=== PATIENT | female | born 1940 | race Caucasian/White ===

== ENCOUNTER 2019-01-14 15:47 | Emergency (ER) | payer MEDICARE ==
[~2019-01-14] VITALS: Ht 157.5 cm; Wt 65.9 kg
[~2019-01-14 15:47] MED LIST: COUMADIN2.5 MG OR; COUMADIN5 M1 IV; COUMADIN5 MG OR; DIGOXIN0.125 MG OR; LANOXIN0.125 MG OR; LIPITOR10 MG OR; PLAVIX75 MG OR; PREVACID30 M1 OR; PREVACID30 M2 OR; SOTALOL AF80 MG OR; SOTALOL HCL80 MG OR; SYNTHROID50 MCG OR
[2019-01-14 16:24] LABS: URINE BILIRUBIN - DIPSTICK NEGATIVE (NEGATIVE); URINE BLOOD DIPSTICK SMALL (NEGATIVE); URINE COLOR YELLOW; URINE GLUCOSE - DIPSTICK NEGATIVE (NEGATIVE); URINE KETONE NEGATIVE (NEGATIVE); URINE NITRITE - DIPSTICK NEGATIVE (Negative); URINE PROTEIN - DIPSTICK NEGATIVE (NEG-TRACE); URINE UROBILINOGEN - DIPSTICK 0.2 E.U./dL (0.2)
[2019-01-14 16:30] LABS: URINE LEUK ESTERASE LARGE (NEGATIVE)
[2019-01-14 16:46] LABS: URINE BACTERIA FEW hpf; URINE SQUAMOUS EPITHELIAL CELL FEW EPI/hpf (0-FEW); URINE WBC TNTC WBC/hpf (0-5)
[2019-01-14] MEDS ORDERED: PYRIDIUM200 MG PO (17:09)
[2019-01-14] MEDS ORDERED: MACRODANTIN100 MG PO (17:09)
[2019-01-14 17:32] VITALS: BP 165/65
== END 2019-01-14 17:42 | disposition home or self-care (01) ==
LOC: ED 15:47
PROVIDERS: Emergency Medicine
DX: N39.0 Urinary tract infection, site not specified (principal)

== ENCOUNTER 2020-08-11 19:20 | Emergency (ER) | payer MEDICARE ==
[~2020-08-11] VITALS: Ht 157.5 cm; Wt 63.0 kg
[~2020-08-11 19:20] MED LIST changes: +MACRODANTIN100 MG PO; +PYRIDIUM200 MG PO
[2020-08-11] MEDS ORDERED: ASPIRIN EC LOW81 MG PO (20:21)
[2020-08-11] MEDS ORDERED: MOTRIN400 MG/TAB PO (21:17)
[2020-08-11] MEDS ORDERED: ORPHENADRINE100 MG PO (21:17)
[2020-08-11 21:21] VITALS: BP 170/77
== END 2020-08-11 21:21 | disposition home or self-care (01) ==
LOC: ED 19:20
DX: M47.812 Spondylosis without myelopathy or radiculopathy, cervical region (principal); Z95.1 Presence of aortocoronary bypass graft

== ENCOUNTER 2020-12-31 | Emergency (ER) | payer MEDICARE, MEDICAID ==
[~2020-12-31] MED LIST changes: +ASPIRIN EC LOW81 MG PO; +MOTRIN400 MG/TAB PO; +ORPHENADRINE100 MG PO
[2020-12-31] MEDS ORDERED: WARFARIN5 MG PO (11:23)
[2020-12-31] MEDS ORDERED: LEVOTHYROXIN100 MCG PO ×2 (11:24→11:25)
[2020-12-31] MEDS ORDERED: BREO ELLIPTA 101 INH IN (11:27)
[2020-12-31] MEDS ORDERED: ALBUTEROL SUL0.083 % IN (11:27)
[2020-12-31] MEDS ORDERED: VENTOLIN HFA IN (11:29)
[2020-12-31] MEDS ORDERED: LORTAB 5/3255 MG PO (12:11)
== END 2020-12-31 12:35 | disposition home or self-care (01) ==
DX: S20.211A Contusion of right front wall of thorax, initial encounter (principal); W19.XXXA Unspecified fall, initial encounter; Z95.1 Presence of aortocoronary bypass graft; Z79.01 Long term (current) use of anticoagulants; Z79.02 Long term (current) use of antithrombotics/antiplatelets; Z79.82 Long term (current) use of aspirin

== ENCOUNTER 2022-01-09 15:47 | Emergency (ER) | payer MEDICARE ==
[~2022-01-09] VITALS: Ht 157.5 cm; Wt 62.0 kg
[~2022-01-09 15:47] MED LIST changes: +ALBUTEROL SUL0.083 % IN; +BREO ELLIPTA 101 INH IN; +LEVOTHYROXIN100 MCG PO; +LORTAB 5/3255 MG PO; +VENTOLIN HFA IN; +WARFARIN5 MG PO
[2022-01-09 15:56] VITALS: BP 159/140
[2022-01-09 15:57] VITALS: BP 159/61
[2022-01-09 16:02] VITALS: BP 118/60
[2022-01-09 16:31] VITALS: BP 113/74
[2022-01-09 17:00] VITALS: BP 126/51
[2022-01-09 17:03] LABS: IMMATURE GRANULOCYTES 0.3 % (0.0-5.0); MEAN CELL VOLUME 93.5 fL CALC (80.0-100.0); MEAN CORPUSCULAR HGB 30.7 pG CALC (26.0-32.0); MEAN CORPUSCULAR HGB CONC 32.9 g/dL CAL (32.0-36.0); NEUT# 3.38 thou/uL (2.00-7.15); RED BLOOD COUNT 3.84 mill/uL (4.20-5.60); RED CELL DISTRI WIDTH 15.4 % (11.5-15.5)
[2022-01-09 17:05] LABS: HEMATOCRIT 35.9 % (37.0-47.0); HEMOGLOBIN 11.8 g/dl (12.0-16.0)
[2022-01-09 17:24] LABS: PROTHROMBIN TIME 60.4 SECONDS (9.0-12.5)
[2022-01-09 17:25] LABS: INTERNATIONAL NORMALIZED RATIO 6.5 RATIO (0.7-1.3)
[2022-01-09 17:36] VITALS: BP 126/51
== END 2022-01-09 17:47 | disposition home or self-care (01) ==
LOC: ED 15:47
PROVIDERS: Family Medicine
DX: H92.22 Otorrhagia, left ear (principal); T45.515A Adverse effect of anticoagulants, initial encounter; I10 Essential (primary) hypertension; E11.9 Type 2 diabetes mellitus without complications; I25.2 Old myocardial infarction; Z86.73 Personal history of transient ischemic attack (TIA), and cerebral infarction without residual deficits; Z79.01 Long term (current) use of anticoagulants; Z79.02 Long term (current) use of antithrombotics/antiplatelets; Z95.1 Presence of aortocoronary bypass graft; Z85.038 Personal history of other malignant neoplasm of large intestine

== ENCOUNTER 2022-05-05 11:40 | Emergency (ER) | payer MEDICARE, MEDICAID ==
[~2022-05-05] VITALS: Ht 157.5 cm; Wt 61.2 kg
[2022-05-05 12:43] VITALS: BP 187/86
[2022-05-05 13:00] VITALS: BP 151/57
[2022-05-05 13:43] LABS: HEMATOCRIT 36.3 % (37.0-47.0); HEMOGLOBIN 11.9 g/dl (12.0-16.0); IMMATURE GRANULOCYTES 0.4 % (0.0-5.0); MEAN CELL VOLUME 93.6 fL CALC (80.0-100.0); MEAN CORPUSCULAR HGB 30.7 pG CALC (26.0-32.0); MEAN CORPUSCULAR HGB CONC 32.8 g/dL CAL (32.0-36.0); NEUT# 4.83 thou/uL (2.00-7.15); RED BLOOD COUNT 3.88 mill/uL (4.20-5.60); RED CELL DISTRI WIDTH 15.6 % (11.5-15.5)
[2022-05-05 13:46] VITALS: BP 157/65
[2022-05-05 14:00] VITALS: BP 161/66
[2022-05-05 14:11] LABS: ALBUMIN 4.6 g/dL (3.2-5.0); ALKALINE PHOSPHATASE 73 u/l (38-126); ANION GAP 13 (6-22 (CALC)); BILIRUBIN, TOTAL 0.7 mg/dL (0.0-1.4); BUN 11 mg/dL (8-23); BUN/CREATININE RATIO 19 (12-20 (CALC)); CARBON DIOXIDE 27 mmol/l (22-30); CHLORIDE 95 mmol/l (95-108); CREATININE 0.6 mg/dL (0.5-1.0); GFR FOR AFR.AMER. > 60 ML/MIN (>=60 (CALC)); GFR OTHER RACES > 60 ML/MIN (>=60 (CALC)); POTASSIUM 4.6 mmol/l (3.5-5.1); SGOT/AST 32 u/l (9-36); SODIUM 130 mmol/l (137-146); TOTAL PROTEIN 7.8 g/dL (6.3-8.2)
[2022-05-05 14:22] LABS: INTERNATIONAL NORMALIZED RATIO 2.7 RATIO (0.7-1.3); PROTHROMBIN TIME 25.5 SECONDS (9.0-12.5)
[2022-05-05] MEDS ORDERED: ULTRAM50 M1 PO (15:17)
[2022-05-05 15:43] VITALS: BP 161/66
== END 2022-05-05 15:55 | disposition home or self-care (01) ==
LOC: ED 11:40
PROVIDERS: Nurse Practitioner
DX: S20.212A Contusion of left front wall of thorax, initial encounter (principal); W01.198A Fall on same level from slipping, tripping and stumbling with subsequent striking against other object, initial encounter; Z95.1 Presence of aortocoronary bypass graft

== ENCOUNTER 2022-05-23 17:30 | Emergency (ER) | payer MEDICARE, MEDICAID ==
[~2022-05-23 17:30] MED LIST changes: +ULTRAM50 M1 PO
== END 2022-05-23 17:45 | disposition left against medical advice (07) ==
LOC: ED 17:30 → LWOBS 17:45
DX: Z53.21 Procedure and treatment not carried out due to patient leaving prior to being seen by health care provider (principal)

== ENCOUNTER 2022-07-11 13:37 | Emergency (ER) | payer MEDICARE ==
[2022-07-11] VITALS (7 sets, daily range): BP systolic 64–142; BP diastolic 50–121
[~2022-07-11] VITALS: Ht 157.5 cm; Wt 61.3 kg
[2022-07-11 14:22] LABS: HEMATOCRIT 35.2 % (37.0-47.0); HEMOGLOBIN 11.4 g/dl (12.0-16.0); IMMATURE GRANULOCYTES 0.8 % (0.0-5.0); MEAN CELL VOLUME 93.9 fL CALC (80.0-100.0); MEAN CORPUSCULAR HGB 30.4 pG CALC (26.0-32.0); MEAN CORPUSCULAR HGB CONC 32.4 g/dL CAL (32.0-36.0); NEUT# 3.76 thou/uL (2.00-7.15); RED BLOOD COUNT 3.75 mill/uL (4.20-5.60); RED CELL DISTRI WIDTH 15.8 % (11.5-15.5)
[2022-07-11 14:32] LABS: ANION GAP 15 (6-22 (CALC)); BUN 12 mg/dL (8-23); BUN/CREATININE RATIO 16 (12-20 (CALC)); CARBON DIOXIDE 22 mmol/l (22-30); CHLORIDE 95 mmol/l (95-108); CREATININE 0.8 mg/dL (0.5-1.0); GFR FOR AFR.AMER. > 60 ML/MIN (>=60 (CALC)); GFR OTHER RACES > 60 ML/MIN (>=60 (CALC)); POTASSIUM 4.8 mmol/l (3.5-5.1); SODIUM 127 mmol/l (137-146)
[2022-07-11 15:04] LABS: INTERNATIONAL NORMALIZED RATIO 1.6 RATIO (0.7-1.3); PROTHROMBIN TIME 15.2 SECONDS (9.0-12.5)
== END 2022-07-11 16:10 | disposition home or self-care (01) ==
LOC: ED 13:37
PROVIDERS: Family Medicine
DX: S00.411A Abrasion of right ear, initial encounter (principal); I10 Essential (primary) hypertension; J44.9 Chronic obstructive pulmonary disease, unspecified; I48.91 Unspecified atrial fibrillation; X58.XXXA Exposure to other specified factors, initial encounter; Z79.01 Long term (current) use of anticoagulants; Z95.1 Presence of aortocoronary bypass graft; Z85.038 Personal history of other malignant neoplasm of large intestine

== ENCOUNTER 2023-02-17 12:20 | Emergency (ER) | payer MEDICARE ==
[~2023-02-17] VITALS: Ht 157.5 cm; Wt 56.7 kg
[2023-02-17 12:44] VITALS: BP 165/61
== END 2023-02-17 12:48 | disposition home or self-care (01) ==
LOC: ED 12:20
DX: H93.8X2 Other specified disorders of left ear (principal); I10 Essential (primary) hypertension; I48.91 Unspecified atrial fibrillation; J44.9 Chronic obstructive pulmonary disease, unspecified; Z95.1 Presence of aortocoronary bypass graft

== ENCOUNTER 2024-07-03 10:06 | Emergency (ER) | payer MEDICARE ==
[2024-07-03] VITALS (7 sets, daily range): BP systolic 126–238; BP diastolic 57–142
[~2024-07-03] VITALS: Ht 157.5 cm; Wt 56.6 kg
[2024-07-03] MEDS ORDERED: ACETAMINOPHEN 500 MG TAB PO ONE (10:30)
[2024-07-03 10:53] LABS: BASO% 2.1 % (0-3); EOS% 0.5 % (0-8); HEMATOCRIT 37.9 % (37.0-47.0); HEMOGLOBIN 12.4 g/dl (12.0-16.0); IMMATURE GRANULOCYTES 0.3 % (0.0-5.0); LYMPH% 29.4 % (15-41); MEAN CELL VOLUME 98.2 fL CALC (80.0-100.0); MEAN CORPUSCULAR HGB 32.1 pG CALC (26.0-32.0); MEAN CORPUSCULAR HGB CONC 32.7 g/dL CAL (32.0-36.0); MONO% 9.3 % (2-13); NEUT# 3.6 thou/uL (2.00-7.15); NEUT% 58.4 % (42-76); RED BLOOD COUNT 3.86 mill/uL (4.20-5.60); RED CELL DISTRI WIDTH 14.7 % (11.5-15.5)
[2024-07-03 11:05] LABS: ALBUMIN 4.6 g/dL (3.2-5.0); ALKALINE PHOSPHATASE 54 u/l (38-126); BILIRUBIN, TOTAL 0.8 mg/dL (0.02-1.3); BUN 9 mg/dL (8-23); BUN/CREATININE RATIO 15 (12-20 (CALC)); CARBON DIOXIDE 27 mmol/l (22-30); CHLORIDE 105 mmol/l (95-108); CREATININE 0.6 mg/dL (0.5-1.0); ESTIMATED GFR 88 ML/MIN (>=90 (CALC)); SGOT/AST 27 u/l (9-36); SODIUM 136 mmol/l (137-146); TOTAL PROTEIN 7.5 g/dL (6.3-8.2)
[2024-07-03 11:07] LABS: ANION GAP 8 (6-22 (CALC)); POTASSIUM 4.2 mmol/l (3.5-5.1)
[2024-07-03] MEDS ORDERED: ZOFRAN4 MG/TAB PO (12:02)
[2024-07-03] MEDS ORDERED: TRAMADOL HYDROC50 M1 PO (12:02)
== END 2024-07-03 12:26 | disposition home or self-care (01) ==
LOC: ED 10:06
PROVIDERS: Family Medicine
DX: R07.81 Pleurodynia (principal); I10 Essential (primary) hypertension; I48.91 Unspecified atrial fibrillation; I25.10 Atherosclerotic heart disease of native coronary artery without angina pectoris; J44.9 Chronic obstructive pulmonary disease, unspecified; Z95.1 Presence of aortocoronary bypass graft; Z85.038 Personal history of other malignant neoplasm of large intestine

== ENCOUNTER 2024-09-22 12:18 | Observation (INO) | payer MEDICARE ==
[~2024-09-22] VITALS: Ht 157.5 cm; Wt 54.0 kg
[2024-09-22] VITALS (11 sets, daily range): BP systolic 123–145; BP diastolic 44–109
[~2024-09-22 12:18] MED LIST changes: -DIGOXIN0.125 MG OR; +DIGOXIN0.125 MG PO; +PERCOCET 5/325M1 TAB PO; +PLAVIX75 MG PO; +TRAMADOL HYDROC50 M1 PO; +ZOFRAN4 MG/TAB PO
--- NOTE | 2024-09-22 12:40 | NUR ---
PT BROUGHT BACK TO ER ROOM 9 VIA WHEELCHAIR, PTS DAUGHTER AT SIDE
[2024-09-22] MEDS ORDERED: dilTIAZem HCL 50 MG/10 ML SDV IV ONE ×2 (13:00→14:30)
[2024-09-22] MEDS ORDERED: DILTIAZEM HCL 125 MG in SODIUM CHLORIDE 0.9% 100 ML IV ONE ×2 (13:05→14:30)
[2024-09-22] MEDS ORDERED: IPRATROPIUM-Albuterol 0.5MG-2.5MG/3 ML NEB ONE ×2 (13:15)
[2024-09-22] MEDS ORDERED: AZITHROMYCIN 500 MG in SODIUM CHLORIDE 0.9% 500 ML IV ONE (13:15)
[2024-09-22] MEDS ORDERED: ACETAMINOPHEN 500 MG TAB PO ONE (13:15)
[2024-09-22] MEDS ORDERED: methylPREDNISolone SODIUM SUCC 125 MG/2 ML SDV IV ONE (13:15)
[2024-09-22] MEDS ORDERED: SODIUM CHLORIDE 0.9% 1,000 ML IV ONE (13:15)
[2024-09-22] MEDS ORDERED: cefTRIAXone SODIUM 2 GM in SODIUM CHLORIDE 0.9% 100 ML IV ONE (13:15)
[2024-09-22 13:22] LABS: EOS% 0.2 % (0-8); HEMATOCRIT 33.6 % (37.0-47.0); HEMOGLOBIN 10.8 g/dl (12.0-16.0); IMMATURE GRANULOCYTES 1.1 % (0.0-5.0); LYMPH% 8.5 % (15-41); MEAN CELL VOLUME 96.8 fL CALC (80.0-100.0); MEAN CORPUSCULAR HGB 31.1 pG CALC (26.0-32.0); MEAN CORPUSCULAR HGB CONC 32.1 g/dL CAL (32.0-36.0); MONO% 4.7 % (2-13); NEUT# 7.04 thou/uL (2.00-7.15); NEUT% 84.5 % (42-76); RED BLOOD COUNT 3.47 mill/uL (4.20-5.60); RED CELL DISTRI WIDTH 15.3 % (11.5-15.5)
[2024-09-22 13:29] LABS: BILIRUBIN, TOTAL 1.1 mg/dL (0.02-1.3); CREATININE 0.5 mg/dL (0.5-1.0); POTASSIUM 4.4 mmol/l (3.5-5.1); TOTAL PROTEIN 6.3 g/dL (6.3-8.2)
[2024-09-22 13:31] LABS: ALBUMIN 3.5 g/dL (3.2-5.0)
[2024-09-22] MEDS ORDERED: SODIUM CHLORIDE 0.9% 500 ML IV PRN (13:40)
[2024-09-22 14:00] LABS: TSH, 3RD GENERATION 0.49 uIU/mL (0.47 - 4.68)
[2024-09-22] MEDS ORDERED: SODIUM CHLORIDE 0.9% 250 ML IV PRN (14:30)
--- NOTE | 2024-09-22 17:30 | NUR ---
#18 aust[place]ian sams inserted with clear yellow urine return.
[2024-09-22] MEDS ORDERED: SODIUM CHLORIDE 0.9% 1,000 ML IV PRN (17:40)
[2024-09-22] MEDS ORDERED: ACETAMINOPHEN 325 MG/TAB PO PRN (17:40)
[2024-09-22] MEDS ORDERED: MAGNESIUM HYDROXIDE 30 ML UDC PO PRN (17:40)
--- NOTE | 2024-09-22 17:57 | NUR ---
Report called to [facility] Fox, ICU bed 4 for patient transfer.
--- NOTE | 2024-09-22 17:58 | NUR ---
RECIEVED REPORT FROM ED RN. AWAITING PT ARRIVAL
[2024-09-22 18:01] LABS: URINE BILIRUBIN - DIPSTICK Negative (NEGATIVE); URINE BLOOD DIPSTICK Negative (NEGATIVE); URINE GLUCOSE - DIPSTICK Negative (NEGATIVE); URINE KETONE 15 mg/dL (NEGATIVE); URINE LEUK ESTERASE Negative (NEGATIVE); URINE NITRITE - DIPSTICK Negative (Negative); URINE PROTEIN - DIPSTICK Negative (NEG-TRACE)
[2024-09-22 18:02] LABS: URINE COLOR Yellow
[2024-09-22] MEDS ORDERED: IPRATROPIUM-Albuterol 0.5MG-2.5MG/3 ML NEB PRN (18:55)
--- NOTE | 2024-09-22 19:10 | NUR ---
RN contacted daughter Geovanna Braden for home medication list. Per daughter "I do not have the list. My sister does. I will call her right now and ask her to call you with the name of the meds.". RN ask sister name and phone number to save in the chart to which was reply "I do not have her number by heart". RN will wait for the phone call back
[2024-09-22] MEDS ORDERED: ELIQUIS2.5 MG (19:26)
--- NOTE | 2024-09-22 19:31 | NUR ---
daughter Patsy called back and med list updated. Contact to [facility] is [phone]
--- NOTE | 2024-09-22 19:45 | NUR ---
PT RESTING IN BED NO DISTRESS NOTED ON ASSESSMENT. PT ASKING FOR FOOD NURSE PROVIDED A TV DINNER AND SODA. IV FLUSHED WORKING PROPERLY IV FLUIDS STARTED AT 100ML/HR. VS WNL ON RA LUNGS COARSE WITH A PRODUCTIVE COUGH, WHITE THICK SPUTUM SMALL AMOUNT. PT WITH SERVIN CATHETER NO KINKS. SKIN INTACT NO EDEMA NOTED. CALL LIGHT WITHIN REACH. PT STATED UNDERSTANDING ON HOW TO USE IT. PLAN OF CARE ONGOING.
[2024-09-22] MEDS ORDERED: ENOXAPARIN SODIUM 40 MG/0.4 ML SYR SC SCH (21:00)
[2024-09-22] MEDS ORDERED: methylPREDNISolone Sod Succ 40 MG/ML SDV IV SCH (22:00)
--- NOTE | 2024-09-22 22:00 | NUR ---
PT RESTING NO DISTRESS NOTED. O2 READING AT 96% ON RA. CALL LIGHT WITHIN REACH. PLAN OF CARE ONGOING.
--- NOTE | 2024-09-22 22:30 | NUR ---
PT REQUESTED BREATHING TX BEFORE GOING TO SLEEP.
[2024-09-23] VITALS (46 sets, daily range): BP systolic 108–187; BP diastolic 42–120
--- NOTE | 2024-09-23 02:04 | NUR ---
PT SLEEPING EASILY AROUSABLE NO DISTRESS NOTED. SERVIN CATHETER EMPTIED, CLEAR YELLOW URINE 1200ML NO KINKS. CALL LIGHT WITHIN REACH. PLAN OF CARE ONGOING.
--- NOTE | 2024-09-23 04:00 | NUR ---
PT SLEEPING NO DISTRESS NOTED. CALL LIGHT WITHIN REACH. PLAN OF CARE ONGOING.
[2024-09-23 05:02] LABS: BASO% 0.3 % (0-3); HEMATOCRIT 33.7 % (37.0-47.0); HEMOGLOBIN 10.6 g/dl (12.0-16.0); IMMATURE GRANULOCYTES 0.5 % (0.0-5.0); MEAN CELL VOLUME 99.4 fL CALC (80.0-100.0); MEAN CORPUSCULAR HGB 31.3 pG CALC (26.0-32.0); MEAN CORPUSCULAR HGB CONC 31.5 g/dL CAL (32.0-36.0); MONO% 1.4 % (2-13); NEUT# 5.81 thou/uL (2.00-7.15); NEUT% 90.9 % (42-76); RED BLOOD COUNT 3.39 mill/uL (4.20-5.60); RED CELL DISTRI WIDTH 15.2 % (11.5-15.5)
[2024-09-23 05:28] LABS: ALBUMIN 3.3 g/dL (3.2-5.0); CREATININE 0.4 mg/dL (0.5-1.0); MAGNESIUM 2.1 mg/dL (1.6-2.3); TOTAL PROTEIN 5.9 g/dL (6.3-8.2)
[2024-09-23 05:29] LABS: BILIRUBIN, TOTAL 0.6 mg/dL (0.02-1.3); LYMPH% 6.9 % (15-41)
--- NOTE | 2024-09-23 06:00 | NUR ---
PT AWAKE NO DISTRESS NOTED. IV FLUSHED NEW IV BAG STARTED AND MEDICATION GIVEN WORKING PROPERLY. SERVIN BAG EMPTIED WITH CLEAR YELLOW URINE NO KINKS. NO PAIN REPORTED AT THIS TIME. PT STILL HAVING A PRODUCTIVE COUGH LUNGS COARSE. CALL LIGHT WITHIN REACH. PLAN OF CARE ONGOING.
--- NOTE | 2024-09-23 08:36 | NUR ---
spoke to daughter nova about medications. Dr Chen spoke to her as well.
[2024-09-23] MEDS ORDERED: DIGOXIN 0.125 MG/TAB PO SCH (09:00)
[2024-09-23] MEDS ORDERED: APIXABAN BASE 2.5 MG/TAB TAB PO SCH (09:30)
[2024-09-23] MEDS ORDERED: METOPROLOL TARTRATE 5 MG/5 ML VIAL IV PRN (09:35)
[2024-09-23] MEDS ORDERED: AZITHROMYCIN 500 MG in SODIUM CHLORIDE 0.9% 500 ML IV SCH (14:00)
--- NOTE | 2024-09-23 20:05 | NUR ---
ASSESSMENT COMPLETE. PT IS SITTING UPRIGHT IN CHAIR. PT ONLY COMPLAINT IS PRODUCTIVE COUGH. FLUIDS PROVIDED. V/S STABLE. CALL LIGHT IS IN REACH
[2024-09-23] MEDS ORDERED: ATORVASTATIN CALCIUM 10 MG/TAB PO SCH (21:00)
[2024-09-24] VITALS (19 sets, daily range): BP systolic 153–193; BP diastolic 61–87
--- NOTE | 2024-09-24 00:21 | NUR ---
@ APPROX 0010 A LOUD BANG NOISE HEARD, 3 NURSING STAFF ENTER ROOM, PT FOUND PULLING HERSELF UP OFF FLOOR. PT CONTINUED STATING "IM FINE." PT ASSESSED. IV IN RFA REMOVED, CATHETER INTACT. NO INJURIES NOTED, PT DENIES PAIN, NO COMPLAINTS. PT A + O x4. EDUCATED PT ON NEED TO CALL FOR ASSISTANCE TO GET OUT OF BED. FALL SOCKS WERE ON BILAT FEET WHEN INCIDENT OCCURRED. LEASING REPRESENTATIVE NOTIFIED. BP ELEVATED. HR IS 88. CALL LIGHT IN REACH
--- NOTE | 2024-09-24 04:23 | NUR ---
PT SITTING UPRIGHT IN CHAIR, RESTING COMFORTABLY. NO COMPLAINTS/NEEDS AT THIS TIME. PT DENIES ANY PAIN/INJURY FROM FALL. PROIVDER WAS NOTIFED OF FALL @ 0047. PT IS A + O x4. FLUIDS PROIVDED. IV METOPROL GIVEN FOR ELEVATED BP PER PROVIDER ORDERS. CALL LIGHT IS IN REACH
[2024-09-24] MEDS ORDERED: LEVOTHYROXINE SODIUM 100 MCG TAB PO SCH (06:00)
[2024-09-24] MEDS ORDERED: PREDNISONE10 MG PO (08:14)
[2024-09-24] MEDS ORDERED: VANTIN200 M1 PO (08:15)
[2024-09-24] MEDS ORDERED: AZITHROMYCIN500 MG PO (08:16)
[2024-09-24] MEDS ORDERED: PROTONIX40 M2 PO (08:18)
[2024-09-24] MEDS ORDERED: COZAAR25 MG PO (08:20)
[2024-09-24] MEDS ORDERED: AZITHROMYCIN 250 MG/TAB PO SCH (10:00)
[2024-09-24] MEDS ORDERED: predniSONE 20 MG/TAB PO SCH (10:00)
--- NOTE | 2024-09-24 10:55 | NUR ---
PATIENT RECEIVED ORDER FOR DISCHARGE. PATIENT STATED THAT HER PHARMACY IS CLOSED TODAY. MD MADE AWARE AND ORDERED 1X DOSE OF ORAL ABT AND PREDNISONE. NO FURTHER CONCERNS VOICED BY PATIENT AND FAMILY. SERVIN AND PERIPHERAL IV'S REMOVED. DISCHARGE INSTRUCTIONS GIVEN TO PATIENT WITH DAUGHTER AND GRANDSON IN ROOM. ASSISTED BY STAFF IN WHEELCHAIR TO AWAITING VEHICLE. BELONGINGS TAKEN WITH PATIENT.
[2024-09-25] MEDS ORDERED: OMNICEF300 MG PO (21:46)
== END 2024-09-24 09:45 ==
LOC: ED 12:18 → ED-I 15:35 → ED 16:31 → ICU 16:32
PROVIDERS: Family Medicine; Internal Medicine; ADMIT Internal Medicine; ATTEND Internal Medicine
PROC: 0T9B70Z Drainage of Bladder with Drainage Device, Via Natural or Artificial Opening (ICD-10-PCS; principal; 2024-09-22)
DX: J44.1 Chronic obstructive pulmonary disease with (acute) exacerbation (principal); J18.9 Pneumonia, unspecified organism; J44.0 Chronic obstructive pulmonary disease with (acute) lower respiratory infection; I48.91 Unspecified atrial fibrillation; I10 Essential (primary) hypertension; E78.5 Hyperlipidemia, unspecified; E03.9 Hypothyroidism, unspecified; Z95.1 Presence of aortocoronary bypass graft; Z79.01 Long term (current) use of anticoagulants; Z85.038 Personal history of other malignant neoplasm of large intestine; Z20.822 Contact with and (suspected) exposure to COVID-19
CPT/HCPCS: J0456; J0696

== ENCOUNTER 2024-09-25 18:16 | Inpatient (IN) | payer MEDICARE ==
[2024-09-25] VITALS (22 sets, daily range): BP systolic 113–177; BP diastolic 49–90
[~2024-09-25] VITALS: Ht 157.5 cm; Wt 57.2 kg
[~2024-09-25 18:16] MED LIST changes: +AZITHROMYCIN500 MG PO; +COZAAR25 MG PO; +ELIQUIS2.5 MG; +PREDNISONE10 MG PO; +PROTONIX40 M2 PO; +VANTIN200 M1 PO
--- NOTE | 2024-09-25 18:16 | NUR ---
PT TO ER TRIAGE.
[2024-09-25] MEDS ORDERED: CEFEPIME HYDROCHLORIDE 2 GM in SODIUM CHLORIDE 0.9% 100 ML IV ONE (18:35)
[2024-09-25] MEDS ORDERED: VANCOMYCIN HCL 1 GM in SODIUM CHLORIDE 0.9% 500 ML IV ONE (18:35)
[2024-09-25] MEDS ORDERED: DILTIAZEM HCL 125 MG in SODIUM CHLORIDE 0.9% 100 ML IV ONE (18:40)
[2024-09-25] MEDS ORDERED: dilTIAZem HCL 50 MG/10 ML SDV IV ONE (18:40)
[2024-09-25] MEDS ORDERED: SODIUM CHLORIDE 0.9% 250 ML IV PRN (18:40)
[2024-09-25] MEDS ORDERED: ALBUTEROL SULFATE 2.5 MG VIAL IN ONE (19:05)
--- NOTE | 2024-09-25 19:10 | NUR ---
REPORT RECEIVED FROM DARIN RN AT THIS TIME, PRIOR NURSE MEDICATED CARDIZEM BOLUS FOR HR OF 124 A-FIB, PT HR NOTED RANGING BETWEEN 80S-90S AT THIS TIME, VOICES TO HOLD CARDIZEM GTT, RT AT BEDSIDE,PT STARTED ON BIPAP PER RT SETTINGS FOR RELIEF OF SOB AT THIS TIME, PT FAMILY AT BEDSIDE VOICES UNDERSTANDING OF PLAN OF CARE AT THIS TIME. LAB AT BEDSIDE FOR BLOOD CULTURES AND SWABS CMP.
[2024-09-25 19:31] LABS: BASO% 0.1 % (0-3); HEMOGLOBIN 12.3 g/dl (12.0-16.0); IMMATURE GRANULOCYTES 1.3 % (0.0-5.0); LYMPH% 6.8 % (15-41); MEAN CELL VOLUME 93.9 fL CALC (80.0-100.0); MEAN CORPUSCULAR HGB 31.2 pG CALC (26.0-32.0); MEAN CORPUSCULAR HGB CONC 33.2 g/dL CAL (32.0-36.0); MONO% 5.1 % (2-13); NEUT# 8.55 thou/uL (2.00-7.15); NEUT% 86.7 % (42-76); RED BLOOD COUNT 3.94 mill/uL (4.20-5.60); RED CELL DISTRI WIDTH 15.6 % (11.5-15.5)
--- NOTE | 2024-09-25 19:35 | NUR ---
PT MEDICATED PER ORDERS, NT AT BEDSIDE FOR PLACEMENT OF 2ND LINE AND REPEAT EKG DUE TO A-FIB STABLE AT HR OF 80S-90S. PT BIPAP IN PLACE, PT NOTED WITH MILD RELIEF. AWAITING ALL FURTHER ORDERS/RESULTS.
[2024-09-25 19:45] LABS: POTASSIUM 4.2 mmol/l (3.5-5.1)
[2024-09-25 19:50] LABS: CREATININE 0.5 mg/dL (0.5-1.0)
[2024-09-25 19:55] LABS: ALBUMIN 4.1 g/dL (3.2-5.0); BILIRUBIN, TOTAL 1.3 mg/dL (0.02-1.3); TOTAL PROTEIN 7.2 g/dL (6.3-8.2)
--- NOTE | 2024-09-25 20:00 | NUR ---
2ND ABX HUNG AT THIS TIME, PT UPDATED ON CONTINUOUS PLAN OF CARE, BIPAP REMAINS IN PLACE PER RT SETTINGS, PT NOTED WITH CONTINUED RHONCHI, PT NOTEDWITH WET COUGH AT THIS TIME, MD AWARE, AWAITING FURTHER ORDERS, O2 REMAINS AT 96% WITH BIPAP.
[2024-09-25] MEDS ORDERED: LORazepam 2 MG/ML IV ONE (20:50)
[2024-09-25] MEDS ORDERED: Zaleplon 5 MG/CAP PO PRN (20:55)
[2024-09-25] MEDS ORDERED: MAGNESIUM HYDROXIDE 30 ML UDC PO PRN (20:55)
[2024-09-25] MEDS ORDERED: SODIUM CHLORIDE 0.9% 1,000 ML IV SCH (20:55)
[2024-09-25] MEDS ORDERED: ACETAMINOPHEN 325 MG/TAB PO PRN (20:55)
[2024-09-25] MEDS ORDERED: ENOXAPARIN SODIUM 40 MG/0.4 ML SYR SC SCH (21:00)
--- NOTE | 2024-09-25 21:00 | NUR ---
ATTEMPTED TO ALLOW PT BREAK FROM BIPAP,UNSUCCESSFUL,PT MEDICATED AT THIS TIME DUE TO ANXIETY OF BIPAP. PT VOICES UNDERSTANDING OF CONTINUED PLAN OF CARE, AWAITING ALL RESULTS FOR PLAN OF ADMISSION.
[2024-09-25] MEDS ORDERED: OMNICEF300 MG PO (21:46)
--- NOTE | 2024-09-25 21:59 | NUR ---
REPORT CALLED TO [facility] HAIRSTON AT THIS TIME.
[2024-09-25] MEDS ORDERED: methylPREDNISolone Sod Succ 40 MG/ML SDV IV SCH (22:00)
[2024-09-25] MEDS ORDERED: OSELTAMIVIR PHOSPHATE 75 MG/TAB CAP PO SCH ×2 (22:00→22:10)
[2024-09-25] MEDS ORDERED: CLARIFY DOSE PO PRN ×2 (22:05→22:10)
--- NOTE | 2024-09-25 22:15 | NUR ---
PT TRANSPORTED TO ICU AT THIS TIME ALONGSIDE RT. PT VS REMAIN STABLE, PT VOICES APPRECIATION OF CARE, DROPLET PRECAUTION IN PLACE. NURSES X2 AND DRUM DRIER OPERATOR AT BEDSIDE.
--- NOTE | 2024-09-25 22:35 | NUR ---
PATIENT RECD VIA STRETCHER WITH MOVIE THEATER MANAGER AND RT BEDSIDE FOR SUPPORT, PT ALERT AND ORIENTED, ORIENTED TO SURROUNDINGS AND FALL PRECAUTIONS. DEMONSTRATED UNDERSTANDING OF CALL LIGHTS. REFUSING SCDS. SUCTION WITH YANKAUER PLACED WITH PATIENT AND EDUCATED ON USE FOR EXPECTORATING SPUTUM AND EXCRETED VISCOUS SECRETIONS. ASSESSMENT AND ADMISSION COMPLETED. RT PLACED ON BIPAP 14/6@30% RR >24, SATTING 91-94% WITH SUPPORT.
[2024-09-25] MEDS ORDERED: SODIUM CHLORIDE 0.9% 1,000 ML IV ONE (22:42)
[2024-09-25] MEDS ORDERED: LEVALBUTEROL HCL 1.25 MG/3 ML VIAL NEB SCH (23:00)
[2024-09-26] VITALS (98 sets, daily range): BP systolic 123–195; BP diastolic 49–168
--- NOTE | 2024-09-26 00:35 | NUR ---
PATIENT IS STABLE ON BIPAP /@30% SATTING 96% RR 21 DENIES PAIN OR NEEDS AT THIS TIME. CALL LIGHT WITHIN REACH
--- NOTE | 2024-09-26 01:38 | NUR ---
PT ROUNDING COMPLETED, RESTING CALMLY WITH BIPAP STILL IN PLACE, NO COMPLAINTS AND NO SIGNS OF DISTRESS NOTED. CALL LIGHT OBSERVED WITHIN REACH
--- NOTE | 2024-09-26 05:30 | NUR ---
PATIENT REMAINS STABLE WITH NO SIGNS OF DISTRESS, DENIES PAIN OR COMPLAINTS. CALL LIGHT WITHIN REACH
[2024-09-26 05:31] LABS: BILIRUBIN, TOTAL 0.9 mg/dL (0.02-1.3); CREATININE 0.4 mg/dL (0.5-1.0); POTASSIUM 3.8 mmol/l (3.5-5.1)
[2024-09-26 05:35] LABS: ALBUMIN 2.8 g/dL (3.2-5.0); TOTAL PROTEIN 5.2 g/dL (6.3-8.2)
[2024-09-26 05:36] LABS: BASO% 0.1 % (0-3); EOS% 0.1 % (0-8); HEMATOCRIT 33.5 % (37.0-47.0); IMMATURE GRANULOCYTES 0.6 % (0.0-5.0); LYMPH% 10.5 % (15-41); MEAN CELL VOLUME 97.4 fL CALC (80.0-100.0); MEAN CORPUSCULAR HGB CONC 32.8 g/dL CAL (32.0-36.0); MONO% 4.4 % (2-13); NEUT% 84.3 % (42-76); RED BLOOD COUNT 3.44 mill/uL (4.20-5.60); RED CELL DISTRI WIDTH 15.7 % (11.5-15.5)
--- NOTE | 2024-09-26 07:00 | NUR ---
REPORT RECEIVED FROM OFF GOING NURSE.
--- NOTE | 2024-09-26 07:30 | NUR ---
IN TO SEE PATIENT.
[2024-09-26] MEDS ORDERED: CEFEPIME HYDROCHLORIDE 1 GM in SODIUM CHLORIDE 0.9% 50 ML IV SCH (08:00)
--- NOTE | 2024-09-26 08:00 | NUR ---
PATIENT NOTED LYING IN BED WITH HOB ELEVATED. NO ACUTE DISTRESS NOTED AT THIS TIME. BIPAP IS OFF AND PATIENT IS BEING TRIED ON OXYGEN AT THIS TIME. PATIENT IS ASKING FOR BREAKFAST. SHE WAS EDUCATED ON WHY SHE CANNOT HAVE BREAKFAST AT THIS TIME. SHE HAS TO WAIT UNTIL SHE CAN STAY OFF BIPAP FOR A LONG PERIOD OF TIME TO AVOID ASPIRATION. SHE AGREED AND VERBALIZED UNDERSTANDING. ASSESSMENT COMPLETED (SEE INTERVENTIONS). CRACKLES AND WHEEZES NOTED THROUGHOUT LUNGS. BED LOCKED, IN LOW POSITION, CALL LIGHT WITHIN REACH.
[2024-09-26] MEDS ORDERED: SODIUM CHLORIDE 0.9% 1,000 ML IV PRN (08:45)
[2024-09-26] MEDS ORDERED: DOXYCYCLINE HYCLATE 100 MG in SODIUM CHLORIDE 0.9% 100 ML IV SCH ×2 (08:55→10:00)
[2024-09-26] MEDS ORDERED: METOPROLOL TARTRATE 50 MG/TAB PO SCH (09:00)
[2024-09-26] MEDS ORDERED: DIGOXIN 0.125 MG/TAB PO SCH (09:00)
[2024-09-26] MEDS ORDERED: PANTOPRAZOLE SODIUM Sesquihydr 40 MG/TAB PO SCH (09:00)
[2024-09-26] MEDS ORDERED: APIXABAN BASE 2.5 MG/TAB TAB PO SCH (09:00)
[2024-09-26] MEDS ORDERED: LOSARTAN Potassium 25 MG/TAB PO SCH (09:00)
--- NOTE | 2024-09-26 10:00 | NUR ---
PATIENT STILL TOLERATED BEING OFF BIPAP. SHE HAS PRODUCTIVE COUGH WITH CLEAR-YELLOW SPUTUM. SHE HAS FAMILY AT BEDSIDE. NO ACUTE DISTRESS NOTED. VSS AT THIS TIME. BED LOCKED, IN LOW POSITION, CALL LIGHT WITHIN REACH.
[2024-09-26] MEDS ORDERED: OSELTAMIVIR PHOSPHATE 30 MG/CAP PO SCH (12:00)
--- NOTE | 2024-09-26 12:00 | NUR ---
PATIENT SITTING UP HAVING LUNCH WITH NO ACUTE DISTRESS NOTED. SHE REMAINS OFF BIPAP AT THIS TIME. BED LOCKED, IN LOW POSITION, CALL LIGHT WITHIN REACH.
[2024-09-26] MEDS ORDERED: methylPREDNISolone Sod Succ 40 MG/ML SDV IV SCH (14:00)
--- NOTE | 2024-09-26 16:00 | NUR ---
FAMILY AT BEDSIDE, NO ACUTE DISTRESS NOTED. PATIENT REMAINS OFF BIPAP WITH SATS IN THE LOW TO MID 90S. BED LOCKED, IN LOW POSITION, CALL LIGHT WITHIN REACH.
--- NOTE | 2024-09-26 18:00 | NUR ---
PATIENT STATED MY BLOOD SUGAR HAS BEEN 343 AND ON ONE HAS BEEN CONCERNED. PATIENT EDUCATED ON PROPER DIET. HE CURRENTLY HAS 3 PACKS OF PEANUT BUTTER CRACKERS ON BEDSIDE TABLE, AND HIS BROUGHT HIM A CHOCOLATE FROSTY FROM [employer]. PATIENT VERBALIZED UNDERSTANDING.
--- NOTE | 2024-09-26 19:07 | NUR ---
REPORT GIVEN TO ONCOMING NURSE.
[2024-09-26] MEDS ORDERED: VANCOMYCIN HCL 1 GM in SODIUM CHLORIDE 0.9% 250 ML IV SCH (20:00)
--- NOTE | 2024-09-26 20:00 | NUR ---
PATIENT RECD VIA BEDSIDE REPORT FROM RN. PATIENT STABLE, OFF BIPAP ON 2-3LO2NC SATTING WELL AND REMAINING STABLE. DEMONSTRATES UNDERSTANDING OF CALL LIGHT AND FALL PRECAUTIONS, ACTIVELY PARTICIPATING IN PULMONARY TOILETING WITH ASSISTIVE SELF SUCTIONING VIA KAT.
--- NOTE | 2024-09-26 20:00 | NUR ---
PATIENT RECD FROM RN VIA BEDSIDE REPORT. SHORTLY AFTER REPORT, PT CALLED RN TO ROOM TO EXPRESS CONCERN FOR LLE. 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 LEFT FOOT/ANKLE PRESENTS SIGNIFICANTLY WORSENING SINCE 7AM HANDOFF; PROFOUND CHANGE FROM PREVIOUS SHIFT ASSESSMENT WITH PATIENT. REACHED OUT TO DR DUNCAN AND EXPRESSED BOTH RN AND PT CONCERNS FOR INCREASED DRAINAGE, MORE IMPORTANTLY HEAVY INCREASE AND VISIBLY WORSENING SWELLING TO LLE, PREDOMINANTLY OUTSIDE ANKLE INTO DORSAL ASPECT EXTENDING OVER ALL 5 METATARSALS WITH IMPRESSIVE JUSTIFICATION OF SWELLING SURROUNDING THE 5TH METATARSAL AND LATERAL SURFACE/ASPECT OF L-FOOT. CONCERN RELATED NEED TO R/O DVT D/T SOME NOTABLE ALTHOUGH INCONSEQUENTIAL PULSE CHANGES IN LLE. REQ US/DOPPLER VENOUS DONE NOW, WITH FOLLOWUP MRI IN AM. ORDERS ENTERED. RADIOLOGY AND SUP NOTIFIED.
[2024-09-26] MEDS ORDERED: CEFEPIME HYDROCHLORIDE 2 GM in SODIUM CHLORIDE 0.9% 100 ML IV SCH (21:00)
--- NOTE | 2024-09-26 23:00 | NUR ---
PATIENT ASSIST TO REPOSITION REQUESTED. REMAINS STABLE WITH 2LNC RESPIRATORY SUPPORT AND SELF ASSSITED SUCTIONING. DENIES COMPLAINTS. FALL PRECAUTIONS REMAIN IN PLACE.
[2024-09-27] VITALS (50 sets, daily range): BP systolic 131–184; BP diastolic 48–103
--- NOTE | 2024-09-27 03:29 | NUR ---
PATIENT DENIES SHORTNESS OF BREATH/CP, FREE FROM ANY SIGN OF DISTRESS. COMFORTABLY RESTING WITH CALL LIGHT WITHIN REACH
--- NOTE | 2024-09-27 05:01 | NUR ---
PATIENT REMAINS STABLE WITH NO SIGNS OF DISTRESS AND CALL LIGHT IN REACH
[2024-09-27 05:43] LABS: BASO% 0.3 % (0-3); HEMATOCRIT 32.8 % (37.0-47.0); HEMOGLOBIN 10.8 g/dl (12.0-16.0); IMMATURE GRANULOCYTES 0.7 % (0.0-5.0); MEAN CELL VOLUME 95.1 fL CALC (80.0-100.0); MEAN CORPUSCULAR HGB 31.3 pG CALC (26.0-32.0); MEAN CORPUSCULAR HGB CONC 32.9 g/dL CAL (32.0-36.0); MONO% 2.6 % (2-13); NEUT# 2.64 thou/uL (2.00-7.15); NEUT% 86.6 % (42-76); RED BLOOD COUNT 3.45 mill/uL (4.20-5.60); RED CELL DISTRI WIDTH 15.3 % (11.5-15.5)
[2024-09-27 05:57] LABS: ALBUMIN 2.8 g/dL (3.2-5.0); BILIRUBIN, TOTAL 0.7 mg/dL (0.02-1.3); CREATININE 0.4 mg/dL (0.5-1.0); MAGNESIUM 2.2 mg/dL (1.6-2.3); TOTAL PROTEIN 5.4 g/dL (6.3-8.2)
[2024-09-27] MEDS ORDERED: LEVOTHYROXINE SODIUM 100 MCG TAB PO SCH (06:00)
[2024-09-27 06:35] LABS: LYMPH% 9.8 % (15-41)
--- NOTE | 2024-09-27 08:00 | NUR ---
REPORT RECEIVED FROM NIGHT NURSE. PATIENT AXO X3. S1S2 NOTED, A-FIB ON TELE. WHEEZES HEARD THROGHOUT LUNGS, PRODUCTIVE COUGH NOTED, PATIENT DENIES SOB. ABDOMEN SOFT, NON DISTENDED, NON TENDER, WITH ACTIVE BOWEL SOUNDS. PULSES STRONG IN ALL EXTREMITIES. SKIN WDI. PATIENT HAD A MODERATE SIZE BOWEL MOVEMENT IN THE BEDSIDE COMMODE. PATIENT AMBULATED TO RECLINER WITH MINIMAL ASSISTENCE. BEDDING CHANGED. CALL LIGHT IN REACH.
--- NOTE | 2024-09-27 10:00 | NUR ---
PATIENT SITTING UP IN RECLINER. ALL NEEDS MET. CALL LIGHT IN REACH.
--- NOTE | 2024-09-27 12:00 | NUR ---
PATIENT SITTING UP IN BED. DENIES NEEDS AT THIS TIME. CALL LIGHT IN REACH.
[2024-09-27] MEDS ORDERED: FUROSEMIDE 40 MG/4 ML SDV IV SCH (13:00)
--- NOTE | 2024-09-27 13:25 | NUR ---
PATIENT TAKEN DOWN FOR MRI VIA WHEELCHAIR.
--- NOTE | 2024-09-27 14:00 | NUR ---
PATIENT RETURNED FROM MRI. PATIENT TOLERATED WELL. CALL LIGHT IN REACH.
--- NOTE | 2024-09-27 14:00 | NUR ---
PATIENT SITTING UP IN BED RESTING. ALL NEEDS MET. CALL LIGHT IN REACH.
--- NOTE | 2024-09-27 16:00 | NUR ---
PATIENT SITTING UP IN BED. FAMILY AT BEDSIDE. ALL NEEDS MET. CALL LIGHT IN REACH.
--- NOTE | 2024-09-27 18:00 | NUR ---
PATIENT LAYING DOWN IN BED ASLEEP. ALL NEEDS MET. CALL LIGHT IN REACH.
--- NOTE | 2024-09-27 19:19 | NUR ---
awake. no resp diff. o2 cont per nc. city clerk shows a fib pvcs. po fluids taken well. purewick in place. urine clear yellow. fall precautions cont.
--- NOTE | 2024-09-27 22:00 | NUR ---
eyes closed. o2 cont. no distress.
[2024-09-28] VITALS (15 sets, daily range): BP systolic 123–199; BP diastolic 54–66
--- NOTE | 2024-09-28 00:01 | NUR ---
eyes closed. no distress. radiographer cardiac catheterization shows a fib pvcs.
--- NOTE | 2024-09-28 02:00 | NUR ---
resting quietly. no apparent distress.
--- NOTE | 2024-09-28 04:00 | NUR ---
eyes closed. no distress. ivf infusing well.
[2024-09-28 05:42] LABS: HEMATOCRIT 34.4 % (37.0-47.0); HEMOGLOBIN 11.3 g/dl (12.0-16.0); MEAN CELL VOLUME 96.1 fL CALC (80.0-100.0); MEAN CORPUSCULAR HGB 31.6 pG CALC (26.0-32.0); MEAN CORPUSCULAR HGB CONC 32.8 g/dL CAL (32.0-36.0); RED BLOOD COUNT 3.58 mill/uL (4.20-5.60); RED CELL DISTRI WIDTH 15.1 % (11.5-15.5)
--- NOTE | 2024-09-28 05:50 | NUR ---
xray here. pcxr obtained.
[2024-09-28 06:11] LABS: ALBUMIN 2.9 g/dL (3.2-5.0); BILIRUBIN, TOTAL 0.6 mg/dL (0.02-1.3); CREATININE 0.5 mg/dL (0.5-1.0); POTASSIUM 3.4 mmol/l (3.5-5.1); TOTAL PROTEIN 5.5 g/dL (6.3-8.2)
--- NOTE | 2024-09-28 07:00 | NUR ---
REPORT RECEIVED FROM NIGHT NURSE. PATIENT AXO X3. S1S2 NOTED, A-FIB ON TELE. LUNG SOUNDS COARSE, PRODUCTIVE COUGH NOTED, NO SOB NOTED, ON 2L O2 NC. ABDOMEN SOFT, NON DISTENDED, NON TENDER, WITH ACTIVE BOWEL SOUNDS. PULSES STRONG IN ALL EXTREMITIES. SKIN WDI. CALL LIGHT IN REACH.
--- NOTE | 2024-09-28 10:00 | NUR ---
PATIENT SITTING UP IN BED. ALL NEEDS MET. CALL LIGHT IN REACH.
--- NOTE | 2024-09-28 12:00 | NUR ---
PATIENT SITTING UP IN RECLINER. ALL NEEDS MET. CALL LIGHT IN REACH.
--- NOTE | 2024-09-28 14:00 | NUR ---
PATIENT SITTING UP IN RECLINER ON HER PHONE. ALL NEEDS MET. CALL LIGHT IN REACH.
--- NOTE | 2024-09-28 16:00 | NUR ---
PATIENT SITTING UP IN RECLINER RESTING. DENIES NEEDS AT THIS TIME. CALL LIGHT IN REACH.
--- NOTE | 2024-09-28 18:00 | NUR ---
PATIENT SITTING UP IN RECLINERS RESTING WITH EYES CLOSED. ALL NEEDS MET. CALL LIGHT IN REACH.
--- NOTE | 2024-09-28 20:00 | NUR ---
awakens easily. denies resp diff. o2 cont per nc. prod cough cont. sx self with yankauer. front desk monitor shows a fib pvcs. ivf cont. po fluids taken fair. purewick in place. urine clear yellow. fall & ddroplet precautions cont.
--- NOTE | 2024-09-28 22:00 | NUR ---
eyes closed. no distress.
[2024-09-29] VITALS (21 sets, daily range): BP systolic 130–163; BP diastolic 41–90
--- NOTE | 2024-09-29 00:01 | NUR ---
eyes closed. no resp diff. surveillance monitor shows a fib pvcs.
--- NOTE | 2024-09-29 02:00 | NUR ---
resting quietly. no distress.
--- NOTE | 2024-09-29 04:45 | NUR ---
to xray for 2v cxr then returned to room. marcos well.
[2024-09-29 05:24] LABS: HEMATOCRIT 35.2 % (37.0-47.0); HEMOGLOBIN 11.7 g/dl (12.0-16.0); MEAN CELL VOLUME 94.6 fL CALC (80.0-100.0); MEAN CORPUSCULAR HGB 31.5 pG CALC (26.0-32.0); MEAN CORPUSCULAR HGB CONC 33.2 g/dL CAL (32.0-36.0); RED BLOOD COUNT 3.72 mill/uL (4.20-5.60); RED CELL DISTRI WIDTH 14.9 % (11.5-15.5)
[2024-09-29 05:32] LABS: BILIRUBIN, TOTAL 0.6 mg/dL (0.02-1.3); CREATININE 0.5 mg/dL (0.5-1.0); POTASSIUM 3.8 mmol/l (3.5-5.1); TOTAL PROTEIN 5.6 g/dL (6.3-8.2)
--- NOTE | 2024-09-29 06:00 | NUR ---
eyes closed. no distress. monitoring manager shows a fib pvcs.
--- NOTE | 2024-09-29 08:00 | NUR ---
PATIENT SITTING UP IN BED. ASSESSMENT COMPLETED (SEE INTERVENTIONS). PATIENT ALERT AND ORIENTED X 3. DENIES PAIN AT THIS TIME. BREATHING EVEN AND UNLABORED ON 2L NC. DENIES OXYGEN USE AT HOME. SAFETY MEASURES IN PLACE INCLUDING BED IN LOW POSITION AND CALL LIGHT RESTING NEXT TO L HAND. NO APPARENT DISTRESS NOTED. WILL CONTINUE WITH PLAN OF CARE.
--- NOTE | 2024-09-29 12:09 | NUR ---
ROUNDING COMPLETE. ASSESSMENT UNCHANGED. VITAL SIGNS STABLE. NO APPARENT DISTRESS NOTED. WILL CONTINUE WITH PLAN OF CARE.
--- NOTE | 2024-09-29 16:00 | NUR ---
PATIENT LYING IN BED. DAUGHTER AT BEDSIDE. VITAL SIGNS STABLE. NO APPARENT DISTRESS NOTED. WILL CONTINUE WITH PLAN OF CARE.
--- NOTE | 2024-09-29 20:00 | NUR ---
RECD REPORT FROM RN. PT STABLE AT THIS TIME. DENIES SOB, PAIN OR CP. RESTING COMFORTABLY WITH CALL LIGHT WITHIN REACH. FALL PRECAUTIONS IN PLACE.
[2024-09-30] VITALS (14 sets, daily range): BP systolic 100–183; BP diastolic 42–115
--- NOTE | 2024-09-30 | NUR ---
PT DENIES PAIN OR SOB AT THIS TIME. ASSMT COMPLETED, REQUESTED SLEEPING MEDICATION - ADMINISTERED AT 2100 MED PASS PER REQUEST. NO SIGNS OF DISTRESS NOTED. DEMONSTRATES UNDERSTANDING OF CALL LIGHT USE. FALL PRECAUTIONS IN PLACE.
--- NOTE | 2024-09-30 04:29 | NUR ---
PT SELF DISLODGED RFA IV SITE. NO SWELLING OR REDNESS NOTED. TIP INTACT. DENIES PAIN OR SOB AT THIS TIME. RESTING COMFORTABLY WITH CALL LIGHT IN REACH.
[2024-09-30 05:30] LABS: ALBUMIN 3.2 g/dL (3.2-5.0); BILIRUBIN, TOTAL 0.7 mg/dL (0.02-1.3); CREATININE 0.5 mg/dL (0.5-1.0); POTASSIUM 4.1 mmol/l (3.5-5.1); TOTAL PROTEIN 5.7 g/dL (6.3-8.2)
[2024-09-30 05:49] LABS: BASO% 0.2 % (0-3); HEMATOCRIT 37.1 % (37.0-47.0); HEMOGLOBIN 12.2 g/dl (12.0-16.0); IMMATURE GRANULOCYTES 1.2 % (0.0-5.0); LYMPH% 10.8 % (15-41); MEAN CELL VOLUME 95.6 fL CALC (80.0-100.0); MEAN CORPUSCULAR HGB 31.4 pG CALC (26.0-32.0); MEAN CORPUSCULAR HGB CONC 32.9 g/dL CAL (32.0-36.0); MONO% 3.6 % (2-13); NEUT# 4.74 thou/uL (2.00-7.15); NEUT% 84.2 % (42-76); RED BLOOD COUNT 3.88 mill/uL (4.20-5.60); RED CELL DISTRI WIDTH 15.4 % (11.5-15.5)
--- NOTE | 2024-09-30 07:30 | NUR ---
REPORT RECEIVED FROM NIGHT NURSE; PT RESTING IN BED SEMI FOWLERS; ALERT AND ORIENTED X 3. REMAINS ON DROPLET PRECAUTIONS DUE TO FLU A. POSITIONED UP INTO CHAIR FOR BREAKFAST. DENIES PAIN. RESPIRATIONS LABORED ON ROOM AIR; SPO2 DECREASES TO 82% WITH ACTIVITY; PLACED ON 3L AND ENCOURAGED BREATHING TECHNIUQES. COURSE LUNG SOUNDS WITH EXPRITATOY WHEEZING THROUGHOUT; PRODUCTIVE COUGH WITH CLEAR AND WHITE SECRETIONS. NO IV SITE AT THIS TIME. PLAN OF CARE REVIEWED. PT ENCOURAGED TO VERBALIZE CONCERNS; STATES UNDERSTANDING. SAFETY MEASURES IN PLACE; CALL LIGHT WITHIN REACH.
--- NOTE | 2024-09-30 10:00 | NUR ---
DAUGHTER AT BEDSIDE; PT VERBALIZING REQUEST TO GO HOME. UNABLE TO GET IV ACCESS; AWARE.
[2024-09-30] MEDS ORDERED: OSELTAMIVIR PHO30 MG PO (10:50)
--- NOTE | 2024-09-30 11:31 | NUR ---
Judy Gibson NP called per appeals writer in regards antibiotics; pt has no IV access and has not received iv antibiotics MD made aware on am rounds); pt pending discharge; orders to be placed; primary nurse Richard Arora RN informed of POC
[2024-09-30] MEDS ORDERED: DOXYCYCLINE HYCLATE 100 MG/CAP PO ONE (12:00)
--- NOTE | 2024-09-30 12:09 | NUR ---
SITTING UP EATING LUNCH; ORAL ABT GIVEN. DISCUSSED DISCHARGE PLANS. PT HAS NO REQUESTS OR CONCERNS AT THIS TIME; CALL LIGHT WITHIN REACH.
--- NOTE | 2024-09-30 13:17 | NUR ---
Discharge instructions given. Patient verbalizes understanding of same. Discharged in stable condition via Wheelchair to Home with [facility] and oxygen. Daughter transporting patient home. All belongings sent with pt.
== END 2024-09-30 13:05 | DRG 194 ==
LOC: ED 18:16 → ED-I 20:05 → ED 21:20 → ICU 21:21
PROVIDERS: Family Medicine; Internal Medicine; Nurse Practitioner Family; ADMIT Internal Medicine; ATTEND Internal Medicine
DX: J10.00 Influenza due to other identified influenza virus with unspecified type of pneumonia (principal); E87.1 Hypo-osmolality and hyponatremia; J44.0 Chronic obstructive pulmonary disease with (acute) lower respiratory infection; J44.1 Chronic obstructive pulmonary disease with (acute) exacerbation; I10 Essential (primary) hypertension; I48.91 Unspecified atrial fibrillation; I25.10 Atherosclerotic heart disease of native coronary artery without angina pectoris; I25.2 Old myocardial infarction; Z85.038 Personal history of other malignant neoplasm of large intestine; Z95.1 Presence of aortocoronary bypass graft; Z79.01 Long term (current) use of anticoagulants
CPT/HCPCS: J0692; J1940; J2060; J3370

== ENCOUNTER 2024-10-24 09:09 | Emergency (ER) | payer MEDICARE ==
[2024-10-24] VITALS (27 sets, daily range): BP systolic 136–204; BP diastolic 55–117
[~2024-10-24] VITALS: Ht 157.5 cm; Wt 73.0 kg
[~2024-10-24 09:09] MED LIST changes: +OMNICEF300 MG PO; +OSELTAMIVIR PHO30 MG PO
[2024-10-24] MEDS ORDERED: SODIUM CHLORIDE 0.9% 1,000 ML IV ONE (09:20)
[2024-10-24] MEDS ORDERED: ONDANSETRON HCl 4 MG/2 ML SDV IV ONE (09:20)
[2024-10-24] MEDS ORDERED: MORPHINE SULFATE 4 MG/ML VIAL IV ONE ×2 (09:20→11:40)
[2024-10-24 09:47] LABS: BASO% 0.1 % (0-3); EOS% 0.1 % (0-8); HEMATOCRIT 35.9 % (37.0-47.0); HEMOGLOBIN 11.3 g/dl (12.0-16.0); IMMATURE GRANULOCYTES 1.3 % (0.0-5.0); LYMPH% 5.8 % (15-41); MEAN CELL VOLUME 95.5 fL CALC (80.0-100.0); MEAN CORPUSCULAR HGB 30.1 pG CALC (26.0-32.0); MEAN CORPUSCULAR HGB CONC 31.5 g/dL CAL (32.0-36.0); MONO% 4.2 % (2-13); NEUT# 15.31 thou/uL (2.00-7.15); NEUT% 88.5 % (42-76); RED BLOOD COUNT 3.76 mill/uL (4.20-5.60); RED CELL DISTRI WIDTH 15.4 % (11.5-15.5)
[2024-10-24 10:12] LABS: ALBUMIN 3.7 g/dL (3.2-5.0); CREATININE 0.5 mg/dL (0.5-1.0); POTASSIUM 3.5 mmol/l (3.5-5.1)
[2024-10-24 10:15] LABS: BILIRUBIN, TOTAL 1.1 mg/dL (0.02-1.3)
[2024-10-24] MEDS ORDERED: ATORVASTATIN CA10 MG PO (11:00)
[2024-10-24] MEDS ORDERED: FUROSEMIDE20 MG PO (11:00)
[2024-10-24] MEDS ORDERED: ZOLOFT25 MG PO (11:01)
[2024-10-24] MEDS ORDERED: IPRATROPIUM-Albuterol 0.5MG-2.5MG/3 ML NEB ONE (11:40)
[2024-10-24] MEDS ORDERED: LEVOTHYROXINE SODIUM 100 MCG TAB PO ONE (11:40)
[2024-10-24] MEDS ORDERED: SERTRALINE HCL 25 MG/TAB PO ONE (11:40)
[2024-10-24] MEDS ORDERED: DIGOXIN 0.125 MG/TAB PO ONE (11:40)
[2024-10-24 12:37] LABS: URINE BILIRUBIN - DIPSTICK Negative (NEGATIVE); URINE BLOOD DIPSTICK Negative (NEGATIVE); URINE GLUCOSE - DIPSTICK Negative (NEGATIVE); URINE KETONE Negative (NEGATIVE); URINE LEUK ESTERASE Negative (NEGATIVE); URINE NITRITE - DIPSTICK Negative (Negative); URINE PH 7.5 (4.5-8.0); URINE PROTEIN - DIPSTICK 100 mg/dL (NEG-TRACE); URINE UROBILINOGEN - DIPSTICK 0.2 E.U./dL (0.2)
[2024-10-24 12:55] LABS: URINE COLOR Yellow; URINE EPITHELIAL CELLS MODERATE EPI/hpf (0-FEW); URINE MUCUS MODERATE hpf (NONE-FEW)
[2024-10-24] MEDS ORDERED: methylPREDNISolone SODIUM SUCC 125 MG/2 ML SDV IV ONE (13:15)
[2024-10-24] MEDS ORDERED: Iopamidol 370 (Isovue) 76% 100 ML SDV IV ONE (13:20)
== END 2024-10-24 16:05 ==
LOC: ED 09:09
PROVIDERS: Emergency Medicine
PROC: 0T9B70Z Drainage of Bladder with Drainage Device, Via Natural or Artificial Opening (ICD-10-PCS; principal; 2024-10-24)
DX: S72.002A Fracture of unspecified part of neck of left femur, initial encounter for closed fracture (principal); J44.1 Chronic obstructive pulmonary disease with (acute) exacerbation; I10 Essential (primary) hypertension; I48.91 Unspecified atrial fibrillation; Z95.1 Presence of aortocoronary bypass graft; W01.0XXA Fall on same level from slipping, tripping and stumbling without subsequent striking against object, initial encounter
CPT/HCPCS: J2405